=== PATIENT | male | born 1950 | race Two or more races ===

== ENCOUNTER 2019-09-27 05:58 | Day surgery (SDC) | payer MEDICARE ==
[~2019-09-27] VITALS: Ht 175.3 cm; Wt 99.2 kg
[2019-09-27 06:44] VITALS: BP 169/94
[2019-09-27] MEDS ORDERED: SODIUM CHLORIDE 0.9% 1,000 ML IV SCH (06:45)
[2019-09-27 07:50] LABS: INTERNATIONAL NORMALIZED RATIO 0.95 (0.93-1.1); PROTHROMBIN TIME 10.1 Seconds (9.6-11.5)
[2019-09-27] MEDS ORDERED: FENTANYL PF 100 MCG/2ML ONE (08:04)
[2019-09-27] MEDS ORDERED: MIDAZOLAM 1 MG/ML, 5ML ONE (08:04)
[2019-09-27] MEDS ORDERED: FLUMAZENIL 0.1 MG/1 ML, 5ML ONE (08:04)
[2019-09-27] MEDS ORDERED: NALOXONE 1 MG/ML, 2ML ONE (08:04)
== END 2019-09-27 10:30 | disposition home or self-care (01) ==
LOC: OUT 05:58 → EDSTATUS 08:00 → OUT 10:30
PROVIDERS: ATTEND Internal Medicine Nephrology
DX: N18.4 Chronic kidney disease, stage 4 (severe) (principal); I12.9 Hypertensive chronic kidney disease with stage 1 through stage 4 chronic kidney disease, or unspecified chronic kidney disease; E11.22 Type 2 diabetes mellitus with diabetic chronic kidney disease; N40.0 Benign prostatic hyperplasia without lower urinary tract symptoms; Z98.890 Other specified postprocedural states; Z88.8 Allergy status to other drugs, medicaments and biological substances; Z79.84 Long term (current) use of oral hypoglycemic drugs
CPT/HCPCS: 36415; 50200; 77012; 85610; 99156; 99157; J2250; J3010; J7030; J2310